=== PATIENT | male | born 1960 | race Caucasian/White ===

== ENCOUNTER 2018-02-20 21:33 | Inpatient (IN) | payer BC ==
[2018-02-20] MEDS ORDERED: ONDANSETRON 4 MG INJ IV (23:00)
[2018-02-20] MEDS: morphine 2 MG INJ IV (23:24)
[2018-02-20] MEDS: PE/SHARK OIL/MO/PETROL 30 GM OINT PR (23:25)
[2018-02-20] MEDS: SOD CHLORIDE 0.9% 1,000 ML IV (23:25)
[2018-02-21] MEDS: CIPROFLOXACIN 500 MG TAB PO ×2 (01:57→17:42)
[2018-02-21] MEDS: GABAPENTIN 300 MG CAP PO ×2 (01:58→20:10)
[2018-02-21] MEDS: HYDROmorphONE 0.5 MG/0.5 ML SYG IV ×4 (01:58→15:35)
[2018-02-21] MEDS ORDERED: GABAPENTIN 300 MG CAP PO (02:00)
[2018-02-21] MEDS: MELATONIN 3 MG PO ×2 (02:19→22:02)
[2018-02-21] MEDS: PANTOPRAZOLE (EC) 40 MG TAB PO (05:17)
[2018-02-21 06:08] LABS: ADD MAN DIFF? NO
[2018-02-21 06:13] LABS: BASOPHIL # 0.1 10^3/ul (0.0-0.1); BASOPHILS % 1.1 % (0.0-2.0); EOSINOPHILS # 0.3 10^3/ul (0.0-0.5); EOSINOPHILS % 3.9 % (0.0-7.0); HEMATOCRIT 35.8 % (42.0-52.0); HEMOGLOBIN 12.5 g/dl (14.0-18.0); LYMPHOCYTES # 2.9 10^3/ul (0.8-2.9); LYMPHOCYTES % 35.2 % (15.0-51.0); MEAN CORPUSCULAR HEMOGLOBIN 29.1 pg (29.0-33.0); MEAN CORPUSCULAR HGB CONC 34.9 g/dl (32.0-37.0); MEAN CORPUSCULAR VOLUME 83.4 fl (82.0-101.0); MEAN PLATELET VOLUME 12.1 fl (7.4-10.4); MONOCYTE # 0.6 10^3/ul (0.3-0.9); MONOCYTES % 7.9 % (0.0-11.0); NEUTROPHIL # 4.2 10^3/ul (1.6-7.5); NEUTROPHILS % 51.5 % (39.0-77.0); PLATELET COUNT 189 10^3/UL (140-415); RED BLOOD COUNT 4.29 10^6/ul (4.70-6.10)
[2018-02-21 06:13] LABS: WHITE BLOOD COUNT 8.1 10^3/ul (4.8-10.8)
[2018-02-21 06:44] LABS: ALANINE AMINOTRANSFERASE 35 IU/L (13-69); ALBUMIN 4.3 g/dl (3.3-4.9); ALBUMIN/GLOBULIN RATIO 1.59; ALKALINE PHOSPHATASE 43 IU/L (42-121); ANION GAP 15 (8-16); ASPARTATE AMINO TRANSFERASE 34 IU/L (15-46); BILIRUBIN,INDIRECT 0.1 mg/dl (0-1.1); BILIRUBIN,TOTAL 0.1 mg/dl (0.2-1.3); BLOOD UREA NITROGEN 18 mg/dl (7-20); CALCIUM 9.3 mg/dl (8.4-10.2); CARBON DIOXIDE 26 mmol/L (21-31); CHLORIDE 106 mmol/L (97-110); CHOL/HDL RATIO 2.3 RATIO; CHOLESTEROL 131 mg/dl (100-200); GLUCOSE 93 mg/dl (70-220); HDL CHOLESTEROL 56 mg/dl (28-71); LDL CHOLESTEROL,CALCULATED 56 mg/dl; MAGNESIUM 2.1 mg/dl (1.7-2.5); POTASSIUM 3.9 mmol/L (3.5-5.1); SODIUM 143 mmol/L (135-144); TRIGLYCERIDES 97 mg/dl (0-149)
[2018-02-21] MEDS ORDERED: METHADONE 10 MG TAB PO (09:00)
[2018-02-21] MEDS ORDERED: CIPROFLOXACIN 500 MG TAB PO (09:00)
[2018-02-21] MEDS: METHADONE 10 MG TAB PO (09:21)
[2018-02-21] MEDS ORDERED: oxyCODONE (CR) 10 MG TAB [oxyCONTIN] PO (15:00)
[2018-02-21] MEDS ORDERED: SUMATRIPTAN 50 MG TAB PO (15:00)
[2018-02-21] MEDS: SOD CHLORIDE 0.9% 100 ML (15:54)
[2018-02-21] MEDS: IOHEXOL 300MG/ML 150 ML BTL (15:54)
[2018-02-21] MEDS: oxyCODONE 5 MG TAB PO (16:31)
[2018-02-21] MEDS: morphine 2 MG INJ IV ×2 (19:44→23:45)
[2018-02-21] MEDS: NACL 0.9% 3 ML SYG IV (19:45)
[2018-02-21] MEDS: TAMSULOSIN (SR) 0.4 MG CAP PO (20:09)
[2018-02-21] MEDS: POLYETHYLENE GLYCOL 17 GM PACKET PO (20:10)
[2018-02-21] MEDS: LORAZEPAM 0.5 MG TAB PO (20:10)
[2018-02-21] MEDS: DOCUSATE SODIUM 100 MG CAP PO (20:10)
[2018-02-21] MEDS: GABAPENTIN 100 MG CAP PO (20:14)
[2018-02-22] MEDS: morphine 2 MG INJ IV ×2 (06:15→10:59)
[2018-02-22] MEDS: CIPROFLOXACIN 500 MG TAB PO ×2 (06:15→17:50)
[2018-02-22] MEDS: PANTOPRAZOLE (EC) 40 MG TAB PO (06:15)
[2018-02-22] MEDS: POLYETHYLENE GLYCOL 17 GM PACKET PO ×2 (10:59→20:47)
[2018-02-22] MEDS: DOCUSATE SODIUM 100 MG CAP PO ×2 (10:59→20:47)
[2018-02-22] MEDS: METHADONE 10 MG TAB PO (11:03)
[2018-02-22] MEDS: HYDROmorphONE 0.5 MG/0.5 ML SYG IV ×4 (15:02→23:23)
[2018-02-22] MEDS: LORAZEPAM 0.5 MG TAB PO (16:06)
[2018-02-22] MEDS: PEG/ELECTROLYTES 4L BTL PO (17:51)
[2018-02-22] MEDS: GABAPENTIN 300 MG CAP PO (20:47)
[2018-02-22] MEDS: TAMSULOSIN (SR) 0.4 MG CAP PO (20:47)
[2018-02-22] MEDS: MELATONIN 3 MG PO (22:53)
[2018-02-23] MEDS: HYDROmorphONE 0.5 MG/0.5 ML SYG IV ×5 (03:22→20:08)
[2018-02-23] MEDS: NACL 0.9% 3 ML SYG IV ×2 (03:25→20:10)
[2018-02-23] MEDS: CIPROFLOXACIN 500 MG TAB PO ×2 (05:13→18:34)
[2018-02-23] MEDS: PANTOPRAZOLE (EC) 40 MG TAB PO (05:13)
[2018-02-23 06:46] LABS: ANION GAP 17 (8-16); BLOOD UREA NITROGEN 10 mg/dl (7-20); CALCIUM 9.5 mg/dl (8.4-10.2); CARBON DIOXIDE 30 mmol/L (21-31); CHLORIDE 104 mmol/L (97-110); CREATININE 0.89 mg/dl (0.61-1.24); GLUCOSE 96 mg/dl (70-220); POTASSIUM 3.6 mmol/L (3.5-5.1); SODIUM 147 mmol/L (135-144)
[2018-02-23] MEDS: DOCUSATE SODIUM 100 MG CAP PO ×2 (08:16→20:07)
[2018-02-23] MEDS: METHADONE 10 MG TAB PO (08:17)
[2018-02-23] MEDS: POLYETHYLENE GLYCOL 17 GM PACKET PO ×2 (08:17→20:05)
[2018-02-23] MEDS: NA PHOSPHATE/BIPHOS 133 ML ENEMA PR (14:10)
[2018-02-23] MEDS ORDERED: PROPOFOL 40 ML (17:09)
[2018-02-23] MEDS: PEG/ELECTROLYTES 4L BTL PO (20:05)
[2018-02-23] MEDS: GABAPENTIN 300 MG CAP PO (20:06)
[2018-02-23] MEDS: TAMSULOSIN (SR) 0.4 MG CAP PO (20:07)
[2018-02-23] MEDS: LORAZEPAM 0.5 MG TAB PO (22:14)
[2018-02-23] MEDS: MELATONIN 3 MG PO (22:14)
[2018-02-24] MEDS: HYDROmorphONE 0.5 MG/0.5 ML SYG IV ×6 (00:15→20:38)
[2018-02-24] MEDS: PANTOPRAZOLE (EC) 40 MG TAB PO (05:14)
[2018-02-24] MEDS: CIPROFLOXACIN 500 MG TAB PO ×2 (05:14→17:30)
[2018-02-24 05:55] LABS: ADD MAN DIFF? NO
[2018-02-24 05:59] LABS: WHITE BLOOD COUNT 7.2 10^3/ul (4.8-10.8)
[2018-02-24 05:59] LABS: BASOPHILS % 0.4 % (0.0-2.0); EOSINOPHILS # 0.2 10^3/ul (0.0-0.5); EOSINOPHILS % 3.1 % (0.0-7.0); HEMATOCRIT 34.7 % (42.0-52.0); HEMOGLOBIN 12.2 g/dl (14.0-18.0); LYMPHOCYTES # 2.6 10^3/ul (0.8-2.9); LYMPHOCYTES % 36.2 % (15.0-51.0); MEAN CORPUSCULAR HEMOGLOBIN 29.3 pg (29.0-33.0); MEAN CORPUSCULAR HGB CONC 35.2 g/dl (32.0-37.0); MEAN CORPUSCULAR VOLUME 83.4 fl (82.0-101.0); MEAN PLATELET VOLUME 12.1 fl (7.4-10.4); MONOCYTE # 0.6 10^3/ul (0.3-0.9); NEUTROPHIL # 3.7 10^3/ul (1.6-7.5); PLATELET COUNT 186 10^3/UL (140-415); RED BLOOD COUNT 4.16 10^6/ul (4.70-6.10)
[2018-02-24 06:20] LABS: ANION GAP 14 (8-16); BLOOD UREA NITROGEN 7 mg/dl (7-20); CALCIUM 9.1 mg/dl (8.4-10.2); CARBON DIOXIDE 30 mmol/L (21-31); CHLORIDE 106 mmol/L (97-110); CREATININE 0.87 mg/dl (0.61-1.24); GLUCOSE 90 mg/dl (70-220); POTASSIUM 3.5 mmol/L (3.5-5.1); SODIUM 146 mmol/L (135-144)
[2018-02-24] MEDS: DOCUSATE SODIUM 100 MG CAP PO ×2 (08:26→20:37)
[2018-02-24] MEDS: POLYETHYLENE GLYCOL 17 GM PACKET PO ×2 (08:26→20:37)
[2018-02-24] MEDS: METHADONE 10 MG TAB PO (08:27)
[2018-02-24] MEDS: MAGNESIUM CITRATE 300 ML BTL PO (15:15)
[2018-02-24] MEDS: ACETAMINOPHEN 325 MG TAB PO (16:39)
[2018-02-24 19:33] LABS: POTASSIUM 4.3 mmol/L (3.5-5.1)
[2018-02-24] MEDS: TAMSULOSIN (SR) 0.4 MG CAP PO (20:37)
[2018-02-24] MEDS: NA PHOSPHATE/BIPHOS 133 ML ENEMA PR (20:37)
[2018-02-24] MEDS: GABAPENTIN 300 MG CAP PO (20:37)
[2018-02-25] MEDS: HYDROmorphONE 0.5 MG/0.5 ML SYG IV ×3 (00:38→11:18)
[2018-02-25] MEDS: CIPROFLOXACIN 500 MG TAB PO ×3 (05:12→17:45)
[2018-02-25] MEDS: PANTOPRAZOLE (EC) 40 MG TAB PO ×2 (05:12→05:45)
[2018-02-25 05:54] LABS: ADD MAN DIFF? NO; BASOPHIL # 0.1 10^3/ul (0.0-0.1); BASOPHILS % 0.6 % (0.0-2.0); EOSINOPHILS # 0.3 10^3/ul (0.0-0.5); EOSINOPHILS % 3.1 % (0.0-7.0); HEMATOCRIT 35.7 % (42.0-52.0); HEMOGLOBIN 12.4 g/dl (14.0-18.0); LYMPHOCYTES % 36.5 % (15.0-51.0); MEAN CORPUSCULAR HEMOGLOBIN 29.5 pg (29.0-33.0); MEAN CORPUSCULAR HGB CONC 34.7 g/dl (32.0-37.0); MEAN CORPUSCULAR VOLUME 84.8 fl (82.0-101.0); MEAN PLATELET VOLUME 11.8 fl (7.4-10.4); MONOCYTE # 0.7 10^3/ul (0.3-0.9); MONOCYTES % 7.8 % (0.0-11.0); NEUTROPHIL # 4.3 10^3/ul (1.6-7.5); NEUTROPHILS % 51.8 % (39.0-77.0); PLATELET COUNT 199 10^3/UL (140-415); RED BLOOD COUNT 4.21 10^6/ul (4.70-6.10); RED CELL DISTRIBUTION WIDTH 12.8 % (11.5-14.5)
[2018-02-25 05:54] LABS: WHITE BLOOD COUNT 8.3 10^3/ul (4.8-10.8)
[2018-02-25 06:13] LABS: POTASSIUM 3.6 mmol/L (3.5-5.1)
[2018-02-25 06:19] LABS: ANION GAP 16 (8-16); BLOOD UREA NITROGEN 7 mg/dl (7-20); CALCIUM 9.4 mg/dl (8.4-10.2); CARBON DIOXIDE 28 mmol/L (21-31); CHLORIDE 105 mmol/L (97-110); CREATININE 0.88 mg/dl (0.61-1.24); GLUCOSE 84 mg/dl (70-220); POTASSIUM 3.7 mmol/L (3.5-5.1); SODIUM 145 mmol/L (135-144)
[2018-02-25] MEDS: METHADONE 10 MG TAB PO (08:01)
[2018-02-25] MEDS ORDERED: PROPOFOL 60 ML (10:31)
[2018-02-25] MEDS: POLYETHYLENE GLYCOL 17 GM PACKET PO ×2 (13:59→22:33)
[2018-02-25] MEDS: DOCUSATE SODIUM 100 MG CAP PO ×2 (13:59→22:33)
[2018-02-25] MEDS: oxyCODONE 5 MG TAB PO (20:30)
[2018-02-25] MEDS: GABAPENTIN 300 MG CAP PO (22:32)
[2018-02-25] MEDS: HYDROCORTISONE 25 MG SUPP PR (22:33)
[2018-02-25] MEDS: TAMSULOSIN (SR) 0.4 MG CAP PO (22:33)
[2018-02-26] MEDS: PANTOPRAZOLE (EC) 40 MG TAB PO (06:29)
[2018-02-26] MEDS: CIPROFLOXACIN 500 MG TAB PO ×2 (06:29→18:17)
[2018-02-26] MEDS: METHADONE 10 MG TAB PO (08:25)
[2018-02-26] MEDS: DOCUSATE SODIUM 100 MG CAP PO ×2 (08:26→22:13)
[2018-02-26] MEDS: HYDROCORTISONE 25 MG SUPP PR ×2 (08:26→22:14)
[2018-02-26] MEDS: POLYETHYLENE GLYCOL 17 GM PACKET PO ×2 (08:26→22:15)
[2018-02-26] MEDS ORDERED: oxyCODONE 5 MG TAB PO (10:00)
[2018-02-26] MEDS: TAMSULOSIN (SR) 0.4 MG CAP PO (22:13)
[2018-02-26] MEDS: GABAPENTIN 300 MG CAP PO (22:14)
[2018-02-27] MEDS: CIPROFLOXACIN 500 MG TAB PO ×2 (05:55→18:06)
[2018-02-27] MEDS: PANTOPRAZOLE (EC) 40 MG TAB PO (05:56)
[2018-02-27] MEDS: METHADONE 10 MG TAB PO (08:42)
[2018-02-27] MEDS: HYDROCORTISONE 25 MG SUPP PR ×2 (08:43→21:05)
[2018-02-27] MEDS: DOCUSATE SODIUM 100 MG CAP PO ×2 (08:44→21:05)
[2018-02-27] MEDS: POLYETHYLENE GLYCOL 17 GM PACKET PO ×2 (08:44→21:04)
[2018-02-27] MEDS ORDERED: PROPOFOL 20 ML (10:49)
[2018-02-27] MEDS ORDERED: MIDAZOLAM 1 MG/ML 2 ML INJ ×2 (12:13→12:21)
[2018-02-27] MEDS ORDERED: MORPHINE 2 MG IV (12:30)
[2018-02-27] MEDS ORDERED: HYDROmorphONE 0.4 MG IV (12:30)
[2018-02-27] MEDS: EPHEDrine SULFATE 50 MG/5 ML SYG (12:30)
[2018-02-27] MEDS ORDERED: MIDAZOLAM 1 MG/ML 2 ML INJ IV ×3 (12:30→13:00)
[2018-02-27] MEDS ORDERED: ONDANSETRON 4 MG INJ IV (12:30)
[2018-02-27] MEDS ORDERED: LABETALOL 5 MG IV (12:30)
[2018-02-27] MEDS: PHENYTOIN 1,000 MG in SOD CHLORIDE 0.9% 100 ML IV (13:51)
[2018-02-27 14:01] LABS: ADD MAN DIFF? NO
[2018-02-27 14:02] LABS: BASOPHIL # 0.1 10^3/ul (0.0-0.1); BASOPHILS % 0.7 % (0.0-2.0); EOSINOPHILS # 0.2 10^3/ul (0.0-0.5); EOSINOPHILS % 2.5 % (0.0-7.0); LYMPHOCYTES # 2.2 10^3/ul (0.8-2.9); LYMPHOCYTES % 32.4 % (15.0-51.0); MEAN CORPUSCULAR HEMOGLOBIN 29.8 pg (29.0-33.0); MEAN CORPUSCULAR HGB CONC 35.1 g/dl (32.0-37.0); MEAN CORPUSCULAR VOLUME 84.9 fl (82.0-101.0); MEAN PLATELET VOLUME 11.8 fl (7.4-10.4); MONOCYTE # 0.6 10^3/ul (0.3-0.9); MONOCYTES % 8.5 % (0.0-11.0); NEUTROPHIL # 3.8 10^3/ul (1.6-7.5); NEUTROPHILS % 55.8 % (39.0-77.0); PLATELET COUNT 188 10^3/UL (140-415); RED BLOOD COUNT 4.36 10^6/ul (4.70-6.10); RED CELL DISTRIBUTION WIDTH 12.9 % (11.5-14.5)
[2018-02-27 14:02] LABS: WHITE BLOOD COUNT 6.9 10^3/ul (4.8-10.8)
[2018-02-27 14:40] LABS: ANION GAP 14 (8-16); BLOOD UREA NITROGEN 12 mg/dl (7-20); CALCIUM 9.3 mg/dl (8.4-10.2); CARBON DIOXIDE 27 mmol/L (21-31); CHLORIDE 107 mmol/L (97-110); GLUCOSE 93 mg/dl (70-220); MAGNESIUM 1.9 mg/dl (1.7-2.5); PHOSPHORUS 3.4 mg/dl (2.5-4.9); POTASSIUM 4.1 mmol/L (3.5-5.1); SODIUM 144 mmol/L (135-144)
[2018-02-27] MEDS: SENNA TAB PO (21:05)
[2018-02-27] MEDS: TAMSULOSIN (SR) 0.4 MG CAP PO (21:05)
[2018-02-27] MEDS: GABAPENTIN 300 MG CAP PO (21:06)
[2018-02-28] MEDS: PANTOPRAZOLE (EC) 40 MG TAB PO (06:18)
[2018-02-28] MEDS: CIPROFLOXACIN 500 MG TAB PO (06:18)
[2018-02-28] MEDS: DOCUSATE SODIUM 100 MG CAP PO (08:31)
[2018-02-28] MEDS: POLYETHYLENE GLYCOL 17 GM PACKET PO (08:31)
[2018-02-28] MEDS: METHADONE 10 MG TAB PO (08:31)
[2018-02-28] MEDS: SENNA TAB PO (08:31)
[2018-02-28] MEDS: HYDROCORTISONE 25 MG SUPP PR (08:32)
== END 2018-02-28 18:40 | disposition home or self-care (01) | DRG 394 ==
LOC: MS2 21:33
PROC: 0DJD8ZZ Inspection of Lower Intestinal Tract, Via Natural or Artificial Opening Endoscopic (ICD-10-PCS; principal; 2018-02-23 16:30)
PROC: 0DJD8ZZ Inspection of Lower Intestinal Tract, Via Natural or Artificial Opening Endoscopic (ICD-10-PCS; 2018-02-23 16:30)
PROC: 0DB68ZX Excision of Stomach, Via Natural or Artificial Opening Endoscopic, Diagnostic (ICD-10-PCS; 2018-02-23 16:30)
DX: K60.2 Anal fissure, unspecified (principal); F11.20 Opioid dependence, uncomplicated; K59.03 Drug induced constipation; N41.1 Chronic prostatitis; G89.4 Chronic pain syndrome; N40.0 Benign prostatic hyperplasia without lower urinary tract symptoms; K64.8 Other hemorrhoids; T40.2X5A Adverse effect of other opioids, initial encounter; K25.9 Gastric ulcer, unspecified as acute or chronic, without hemorrhage or perforation; R10.2 Pelvic and perineal pain; R25.9 Unspecified abnormal involuntary movements; T41.1X5A Adverse effect of intravenous anesthetics, initial encounter; Y92.238 Other place in hospital as the place of occurrence of the external cause; Z86.010 Personal history of colon polyps
CPT/HCPCS: 74018; 74177; 80048; 80053; 80061; 83735; 84100; 84132; 84443; 85025; 88305; 88312; 99217

== ENCOUNTER 2018-03-04 01:06 | Observation (INO) | payer BC ==
[2018-03-04] MEDS ORDERED: ACETAMINOPHEN 325 MG TAB PO (03:00)
[2018-03-04] MEDS: HYDROCORTISONE 25 MG SUPP PR ×3 (03:00→21:39)
[2018-03-04] MEDS ORDERED: ONDANSETRON 4 MG INJ IV (03:00)
[2018-03-04] MEDS ORDERED: NACL 0.9% 3 ML SYG IV (03:00)
[2018-03-04] MEDS: SOD CHLORIDE 0.9% 1,000 ML IV (03:54)
[2018-03-04] MEDS: oxyCODONE (CR) 10 MG TAB [oxyCONTIN] PO ×2 (08:09→21:38)
[2018-03-04] MEDS: GABAPENTIN 300 MG CAP PO ×3 (08:09→21:37)
[2018-03-04] MEDS: METHADONE 10 MG TAB PO (08:48)
[2018-03-04] MEDS: LOPERAMIDE 2 MG CAP PO (08:48)
[2018-03-04] MEDS ORDERED: oxyCODONE 5 MG TAB PO (09:00)
[2018-03-04 11:31] LABS: ADD MAN DIFF? NO
[2018-03-04 11:33] LABS: BASOPHIL # 0.1 10^3/ul (0.0-0.1); BASOPHILS % 0.7 % (0.0-2.0); EOSINOPHILS # 0.3 10^3/ul (0.0-0.5); EOSINOPHILS % 3.9 % (0.0-7.0); HEMATOCRIT 37.1 % (42.0-52.0); HEMOGLOBIN 12.8 g/dl (14.0-18.0); LYMPHOCYTES # 1.6 10^3/ul (0.8-2.9); LYMPHOCYTES % 23.7 % (15.0-51.0); MEAN CORPUSCULAR HEMOGLOBIN 29.2 pg (29.0-33.0); MEAN CORPUSCULAR HGB CONC 34.5 g/dl (32.0-37.0); MEAN CORPUSCULAR VOLUME 84.5 fl (82.0-101.0); MEAN PLATELET VOLUME 11.7 fl (7.4-10.4); MONOCYTE # 0.6 10^3/ul (0.3-0.9); MONOCYTES % 8.2 % (0.0-11.0); NEUTROPHIL # 4.3 10^3/ul (1.6-7.5); NEUTROPHILS % 63.1 % (39.0-77.0); PLATELET COUNT 170 10^3/UL (140-415); RED BLOOD COUNT 4.39 10^6/ul (4.70-6.10); RED CELL DISTRIBUTION WIDTH 13.2 % (11.5-14.5)
[2018-03-04 11:33] LABS: WHITE BLOOD COUNT 6.8 10^3/ul (4.8-10.8)
[2018-03-04] MEDS: LIDOCAINE 2% JELLY 30 ML TOP (14:01)
[2018-03-04 14:17] LABS: OCCULT BLOOD STOOL NEGATIVE (NEGATIVE)
[2018-03-04] MEDS: BARIUM SULF 2% 450 ML BTL (BERRY SMOOTHIE) PO (15:25)
[2018-03-04] MEDS: IOHEXOL 300MG/ML 150 ML BTL (20:02)
[2018-03-04] MEDS: SOD CHLORIDE 0.9% 100 ML (20:02)
[2018-03-04 20:47] LABS: ALANINE AMINOTRANSFERASE 42 IU/L (13-69); ALBUMIN 4.4 g/dl (3.3-4.9); ALBUMIN/GLOBULIN RATIO 1.41; ALKALINE PHOSPHATASE 54 IU/L (42-121); ANION GAP 15 (8-16); ASPARTATE AMINO TRANSFERASE 55 IU/L (15-46); BILIRUBIN,INDIRECT 0.5 mg/dl (0-1.1); BILIRUBIN,TOTAL 0.5 mg/dl (0.2-1.3); BLOOD UREA NITROGEN 14 mg/dl (7-20); CALCIUM 9.3 mg/dl (8.4-10.2); CARBON DIOXIDE 24 mmol/L (21-31); CHLORIDE 105 mmol/L (97-110); CREATININE 0.89 mg/dl (0.61-1.24); GLUCOSE 92 mg/dl (70-220); POTASSIUM 3.9 mmol/L (3.5-5.1); SODIUM 140 mmol/L (135-144); TOTAL PROTEIN 7.5 g/dl (6.1-8.1)
[2018-03-05 07:02] LABS: ADD MAN DIFF? NO
[2018-03-05 07:12] LABS: WHITE BLOOD COUNT 7.4 10^3/ul (4.8-10.8)
[2018-03-05 07:12] LABS: BASOPHIL # 0.1 10^3/ul (0.0-0.1); BASOPHILS % 0.8 % (0.0-2.0); EOSINOPHILS # 0.3 10^3/ul (0.0-0.5); EOSINOPHILS % 4.3 % (0.0-7.0); HEMATOCRIT 35.3 % (42.0-52.0); LYMPHOCYTES # 2.4 10^3/ul (0.8-2.9); LYMPHOCYTES % 32.3 % (15.0-51.0); MEAN CORPUSCULAR HEMOGLOBIN 29.1 pg (29.0-33.0); MEAN CORPUSCULAR VOLUME 85.5 fl (82.0-101.0); MEAN PLATELET VOLUME 11.9 fl (7.4-10.4); MONOCYTE # 0.6 10^3/ul (0.3-0.9); MONOCYTES % 8.2 % (0.0-11.0); PLATELET COUNT 157 10^3/UL (140-415); RED BLOOD COUNT 4.13 10^6/ul (4.70-6.10); RED CELL DISTRIBUTION WIDTH 13.1 % (11.5-14.5)
[2018-03-05 07:40] LABS: ALANINE AMINOTRANSFERASE 33 IU/L (13-69); ALBUMIN 3.8 g/dl (3.3-4.9); ALBUMIN/GLOBULIN RATIO 1.46; ALKALINE PHOSPHATASE 41 IU/L (42-121); ANION GAP 17 (8-16); ASPARTATE AMINO TRANSFERASE 46 IU/L (15-46); BILIRUBIN,INDIRECT 0.1 mg/dl (0-1.1); BILIRUBIN,TOTAL 0.1 mg/dl (0.2-1.3); BLOOD UREA NITROGEN 14 mg/dl (7-20); CARBON DIOXIDE 24 mmol/L (21-31); CHLORIDE 108 mmol/L (97-110); CREATININE 0.84 mg/dl (0.61-1.24); GLUCOSE 118 mg/dl (70-220); POTASSIUM 3.7 mmol/L (3.5-5.1); SODIUM 145 mmol/L (135-144); TOTAL PROTEIN 6.4 g/dl (6.1-8.1)
[2018-03-05] MEDS: METHADONE 10 MG TAB PO (09:32)
[2018-03-05] MEDS: GABAPENTIN 300 MG CAP PO ×3 (09:32→21:00)
[2018-03-05] MEDS: HYDROCORTISONE 25 MG SUPP PR ×2 (09:32→21:00)
[2018-03-05] MEDS: LIDOCAINE 2% JELLY 30 ML TOP (09:33)
[2018-03-05] MEDS: oxyCODONE (CR) 10 MG TAB [oxyCONTIN] PO ×2 (09:33→21:00)
[2018-03-05] MEDS: LOPERAMIDE 2 MG CAP PO (14:29)
[2018-03-06] MEDS: METHADONE 10 MG TAB PO (07:37)
[2018-03-06] MEDS: oxyCODONE (CR) 10 MG TAB [oxyCONTIN] PO (08:25)
[2018-03-06] MEDS: GABAPENTIN 300 MG CAP PO (08:25)
[2018-03-06] MEDS: HYDROCORTISONE 25 MG SUPP PR (08:25)
[2018-03-06] MEDS: LIDOCAINE 2% JELLY 30 ML TOP (10:00)
== END 2018-03-06 11:05 | disposition home or self-care (01) ==
LOC: MS3 01:06 → MS2 09:25
PROVIDERS: Family Medicine
DX: R19.7 Diarrhea, unspecified (principal); N41.1 Chronic prostatitis; R10.2 Pelvic and perineal pain; N40.0 Benign prostatic hyperplasia without lower urinary tract symptoms; Z87.891 Personal history of nicotine dependence; Z79.891 Long term (current) use of opiate analgesic
CPT/HCPCS: 74177; 80053; 82270; 85025; 87081

== ENCOUNTER 2018-07-22 13:19 | Day surgery (SDC) | payer BC ==
[2018-07-22] MEDS ORDERED: PROPOFOL 40 ML (14:44)
[2018-07-22] MEDS ORDERED: LIDOCAINE 2% (SDV) 5 ML INJ (14:44)
== END 2018-07-22 16:25 | disposition home or self-care (01) ==
LOC: GIL 13:19
DX: K20.9 Esophagitis, unspecified (principal); K29.70 Gastritis, unspecified, without bleeding; Z87.891 Personal history of nicotine dependence
CPT/HCPCS: 43239; 88305; 88312

== ENCOUNTER 2018-07-28 13:21 | Day surgery (SDC) | payer BC ==
[2018-07-28] MEDS ORDERED: LIDOCAINE 100 MG SYRINGE (15:57)
[2018-07-28] MEDS ORDERED: PROPOFOL 40 ML (15:57)
== END 2018-07-28 17:43 | disposition home or self-care (01) ==
LOC: GIL 13:21
DX: Z12.11 Encounter for screening for malignant neoplasm of colon (principal); Z86.010 Personal history of colon polyps; Z80.0 Family history of malignant neoplasm of digestive organs
CPT/HCPCS: 45378

== ENCOUNTER 2018-08-15 20:44 | Emergency (ER) | payer BC ==
[2018-08-15] MEDS: ONDANSETRON 4 MG INJ IV (22:19)
[2018-08-15] MEDS: SOD CHLORIDE 0.9% 1,000 ML IV (22:19)
[2018-08-15] MEDS: KETOROLAC 30 MG INJ IV (22:20)
[2018-08-15 22:24] LABS: ADD MAN DIFF? NO
[2018-08-15 22:26] LABS: WHITE BLOOD COUNT 10.7 10^3/ul (4.8-10.8)
[2018-08-15 22:26] LABS: BASOPHIL # 0.1 10^3/ul (0.0-0.1); BASOPHILS % 0.6 % (0.0-2.0); EOSINOPHILS # 0.1 10^3/ul (0.0-0.5); EOSINOPHILS % 0.9 % (0.0-7.0); HEMATOCRIT 39.3 % (42.0-52.0); HEMOGLOBIN 13.2 g/dl (14.0-18.0); LYMPHOCYTES # 2.8 10^3/ul (0.8-2.9); LYMPHOCYTES % 26.4 % (15.0-51.0); MEAN CORPUSCULAR HEMOGLOBIN 28.4 pg (29.0-33.0); MEAN CORPUSCULAR HGB CONC 33.6 g/dl (32.0-37.0); MEAN CORPUSCULAR VOLUME 84.7 fl (82.0-101.0); MEAN PLATELET VOLUME 11.5 fl (7.4-10.4); MONOCYTE # 0.6 10^3/ul (0.3-0.9); MONOCYTES % 5.9 % (0.0-11.0); NEUTROPHIL # 7.1 10^3/ul (1.6-7.5); NEUTROPHILS % 65.9 % (39.0-77.0); PLATELET COUNT 220 10^3/UL (140-415); RED BLOOD COUNT 4.64 10^6/ul (4.70-6.10); RED CELL DISTRIBUTION WIDTH 13.2 % (11.5-14.5)
[2018-08-15 22:37] LABS: ALANINE AMINOTRANSFERASE 26 IU/L (13-69); ALBUMIN 3.7 g/dl (3.3-4.9); ALBUMIN/GLOBULIN RATIO 1.15; ALKALINE PHOSPHATASE 46 IU/L (42-121); ANION GAP 14 (8-16); ASPARTATE AMINO TRANSFERASE 26 IU/L (15-46); BILIRUBIN,INDIRECT 0.7 mg/dl (0-1.1); BILIRUBIN,TOTAL 0.7 mg/dl (0.2-1.3); BLOOD UREA NITROGEN 23 mg/dl (7-20); CALCIUM 9.5 mg/dl (8.4-10.2); CARBON DIOXIDE 23 mmol/L (21-31); CHLORIDE 109 mmol/L (97-110); CREATININE 0.94 mg/dl (0.61-1.24); GLUCOSE 105 mg/dl (70-220); POTASSIUM 3.6 mmol/L (3.5-5.1); SODIUM 142 mmol/L (135-144); TOTAL PROTEIN 6.9 g/dl (6.1-8.1)
[2018-08-15] MEDS: morphine 10 MG INJ IM (22:47)
[2018-08-15] MEDS: HYDROmorphONE 0.5 MG/0.5 ML SYG IV ×2 (22:59→23:11)
[2018-08-15] MEDS: LIDOCAINE 2% 20 ML UROJET SYRINGE MM (23:04)
[2018-08-15] MEDS: HALOPERIDOL 5 MG INJ IV (23:11)
[2018-08-15 23:38] LABS: URINE BLOOD (Dip) POC Negative (NEGATIVE); URINE GLUCOSE (Dip) POC Negative (NEGATIVE); URINE KETONES (Dip) POC 1+ (NEGATIVE); URINE LEUKOCYTE EST (Dip) POC Negative (NEGATIVE); URINE NITRITE (Dip) POC Negative (NEGATIVE); URINE TOTAL PROTEIN POC 2+ (NEGATIVE)
[2018-08-15 23:38] LABS: URINE PH (Dip) POC 5.5 (5.0-8.5)
== END 2018-08-16 05:45 | disposition home or self-care (01) ==
LOC: E/R 08-16 05:45
DX: N43.3 Hydrocele, unspecified (principal); F17.210 Nicotine dependence, cigarettes, uncomplicated; Z72.89 Other problems related to lifestyle; Z76.5 Malingerer [conscious simulation]
CPT/HCPCS: 36415; 76870; 80053; 81003; 85025; 96372; 96374; 96375; 99285-25

== ENCOUNTER → 2019-05-04 | Outpatient (CLI) | payer BC | END | disposition home or self-care (01) | LOC: EKG 14:54 | DX: Z02.83 Encounter for blood-alcohol and blood-drug test (principal) | CPT/HCPCS: 93005 ==

== ENCOUNTER 2019-08-04 06:58 | Day surgery (SDC) | payer BC ==
[2019-08-04] MEDS ORDERED: CEFAZOLIN 2 GM/50 ML (PMX) 50 ML IVPB (10:00)
[2019-08-04] MEDS ORDERED: DEXTROSE 5% 1,000 ML IV (11:00)
[2019-08-04] MEDS ORDERED: OXYCODONE/ACETAMINOPHEN (5/325) TAB PO ×2 (12:00)
[2019-08-04] MEDS ORDERED: MEPERIDINE 25 MG INJ IV (12:00)
[2019-08-04] MEDS ORDERED: ONDANSETRON 4 MG INJ IV (12:00)
[2019-08-04] MEDS ORDERED: DIPHENHYDRAMINE 50 MG INJ IV (12:00)
[2019-08-04] MEDS ORDERED: KETOROLAC 30 MG INJ IV (12:00)
[2019-08-04] MEDS ORDERED: HYDROmorphONE 1 MG/5 ML IV SYRINGE IV ×3 (12:00)
[2019-08-04] MEDS ORDERED: hydrALAzine 20 MG INJ IV (12:00)
[2019-08-04] MEDS ORDERED: LABETALOL HCL 20MG INJ IV (12:00)
[2019-08-04] MEDS ORDERED: FENTAnyl 50 MCG/ML VIAL IV ×3 (12:00)
[2019-08-04] MEDS ORDERED: FENTAnyl 50 MCG/ML VIAL (12:05)
[2019-08-04] MEDS ORDERED: CEFAZOLIN 1 GM INJ (12:05)
[2019-08-04] MEDS ORDERED: PROPOFOL 20 ML (12:05)
[2019-08-04] MEDS ORDERED: ONDANSETRON 4 MG INJ (12:06)
[2019-08-04] MEDS ORDERED: LIDOCAINE 2% 20 ML UROJET SYRINGE (12:09)
[2019-08-04] MEDS ORDERED: EPHEDrine 25 MG/5 ML SYG ×2 (12:33→12:34)
[2019-08-04] MEDS: TRIAMCINOLONE ACET 40 MG/ML INJ ×2 (13:08)
== END 2019-08-04 15:37 | disposition home or self-care (01) ==
LOC: SDS 06:58
DX: N32.0 Bladder-neck obstruction (principal); N35.919 Unspecified urethral stricture, male, unspecified site
CPT/HCPCS: 52276